=== PATIENT | female | born 1965 | race Caucasian/White ===

== ENCOUNTER 2020-10-15 07:32 | Observation (INO) | payer MEDICARE ==
[~2020-10-15] VITALS: Ht 167.6 cm; Wt 79.4 kg
--- NOTE | 2020-10-15 07:35 | NUR ---
PATIENT TO ROOM VIA WHEELCHAIR FOR BEDSIDE TRIAGE.
[2020-10-15 08:02] LABS: HEMATOCRIT 42.1 % (37.0-47.0); HEMOGLOBIN 14.2 g/dl (12.0-16.0); IMMATURE GRANULOCYTES 0.4 % (0.0-5.0); MEAN CELL VOLUME 93.3 fL CALC (80.0-100.0); MEAN CORPUSCULAR HGB 31.5 pG CALC (26.0-32.0); MEAN CORPUSCULAR HGB CONC 33.7 g/dL CAL (32.0-36.0); NEUT# 4.1 thou/uL (2.00-7.15); RED BLOOD COUNT 4.51 mill/uL (4.20-5.60); RED CELL DISTRI WIDTH 12.5 % (11.5-15.5)
[2020-10-15 08:08] LABS: URINE BILIRUBIN - DIPSTICK NEGATIVE (NEGATIVE); URINE BLOOD DIPSTICK TRACE-INTACT (NEGATIVE); URINE COLOR YELLOW; URINE GLUCOSE - DIPSTICK NEGATIVE (NEGATIVE); URINE KETONE NEGATIVE (NEGATIVE); URINE LEUK ESTERASE NEGATIVE (NEGATIVE); URINE NITRITE - DIPSTICK NEGATIVE (Negative); URINE PH 7.5 (4.5-8.0); URINE PROTEIN - DIPSTICK NEGATIVE (NEG-TRACE); URINE UROBILINOGEN - DIPSTICK 0.2 E.U./dL (0.2)
--- NOTE | 2020-10-15 08:15 | NUR ---
IV, LABS AND EKG COMPLETED AWAITING RESULTS
[2020-10-15] MEDS ORDERED: LISINOPRIL2.5 MG PO (08:19)
[2020-10-15] MEDS ORDERED: NITROSTAT0.4 MG SL (08:20)
[2020-10-15 08:24] LABS: ALBUMIN 4.9 g/dL (3.2-5.0); ALKALINE PHOSPHATASE 91 u/l (38-126); ANION GAP 14 (6-22 (CALC)); BILIRUBIN, TOTAL 0.5 mg/dL (0.0-1.4); BUN 12 mg/dL (7-17); BUN/CREATININE RATIO 16 (12-20 (CALC)); CARBON DIOXIDE 27 mmol/l (22-30); CHLORIDE 107 mmol/l (95-108); CREATININE 0.7 mg/dL (0.5-1.0); GFR > 60 ML/MIN (>=60 (CALC)); GFR FOR AFR.AMER. > 60 ML/MIN (>=60 (CALC)); POTASSIUM 3.8 mmol/l (3.5-5.1); SGOT/AST 25 u/l (14-36); SODIUM 143 mmol/l (137-146)
[2020-10-15 08:36] LABS: MYOGLOBIN 38 ng/mL (0 - 62)
--- NOTE | 2020-10-15 09:55 | NUR ---
PT RETURNED FROM RADIOLOGY AWAITING RESULTS
--- NOTE | 2020-10-15 10:08 | NUR ---
PT ARRIVED FROM RADIOLOGY WITHOUT DISTREWSS
--- NOTE | 2020-10-15 11:00 | NUR ---
PT RESTING WITHOUT DISTRESS
--- NOTE | 2020-10-15 12:47 | NUR ---
Transfer Information Transferred To: [facility] Report Given to: SUE Transported by: [facility] [employer] Other Transported with: X Nurse X Transporter X Patent IV O2 X Prosthetics Lab Technician PT WHEELCHAIRED UP WITHOUT DISTRESS REPORT CALLED
[2020-10-15 13:13] VITALS: BP 182/88
--- NOTE | 2020-10-15 14:00 | NUR ---
PT ARRIVES TO FLOOR FROM ER, ALERT AND ORIENTED X 3. LUNGS CLEAR, RA. ABDOMEN SOFT, NONTENDER, BM TODAY. SKIN INTACT. NO COMPLAINT OF CHEST PAIN SINCE ARRIVAL, BUT WAS MEDICATED FOR NAUSEA.
[2020-10-15 14:50] VITALS: BP 151/91
--- NOTE | 2020-10-15 17:36 | NUR ---
VENIFER INFUSED, PT RESTS IN THE BED IN NO ACUTE DISTRESS. NO COMPLAINTS OF CHEST PAIN OR SHORTNESS OF BREATH.
[2020-10-15 18:49] VITALS: BP 140/77
--- NOTE | 2020-10-15 20:06 | NUR ---
PATIENT RESTING IN BED AT THIS TIME, PATIENT DENIES ANY PAIN, SOB, OR DISTRESS. PATIENT HAS TELE ON, ASSESSMENT COMPLETED, CALL LIGHT WITHIN REACH, BED IN LOWEST POSITION, WILL CONTINUE TO MONITOR.
[2020-10-15 23:30] VITALS: BP 135/72
[2020-10-16 04:00] VITALS: BP 107/66
[2020-10-16 06:01] LABS: HEMATOCRIT 39.2 % (37.0-47.0); HEMOGLOBIN 12.8 g/dl (12.0-16.0); IMMATURE GRANULOCYTES 0.3 % (0.0-5.0); MEAN CELL VOLUME 96.3 fL CALC (80.0-100.0); MEAN CORPUSCULAR HGB 31.4 pG CALC (26.0-32.0); MEAN CORPUSCULAR HGB CONC 32.7 g/dL CAL (32.0-36.0); NEUT# 2.8 thou/uL (2.00-7.15); RED BLOOD COUNT 4.07 mill/uL (4.20-5.60); RED CELL DISTRI WIDTH 12.7 % (11.5-15.5)
[2020-10-16 06:22] LABS: ALKALINE PHOSPHATASE 68 u/l (38-126); ANION GAP 10 (6-22 (CALC)); BILIRUBIN, TOTAL 0.3 mg/dL (0.0-1.4); BUN 14 mg/dL (7-17); BUN/CREATININE RATIO 19 (12-20 (CALC)); CALCULATED LDLCHOLESTEROL 152 mg/dL (62-129 (CALC)); CARBON DIOXIDE 25 mmol/l (22-30); CHLORIDE 111 mmol/l (95-108); CHOLESTEROL HDL RATIO 8.1 (<4.4 (CALC)); CREATININE 0.7 mg/dL (0.5-1.0); GFR > 60 ML/MIN (>=60 (CALC)); GFR FOR AFR.AMER. > 60 ML/MIN (>=60 (CALC)); HDL CHOLESTEROL 30 mg/dL (>=40); MAGNESIUM 2.1 mg/dL (1.6-2.3); POTASSIUM 4.2 mmol/l (3.5-5.1); SGOT/AST 19 u/l (14-36); SODIUM 142 mmol/l (137-146); TOTAL CHOLESTEROL 240 mg/dl (0-199); TOTAL TRIGLYCERIDES 289 mg/dl (30-149); VLDL CHOLESTROL 58 mg/dl (2-49 (CALC))
[2020-10-16 06:26] LABS: ALBUMIN 3.7 g/dL (3.2-5.0); TOTAL PROTEIN 6.2 g/dL (6.3-8.2)
[2020-10-16 07:50] VITALS: BP 125/72
--- NOTE | 2020-10-16 07:50 | NUR ---
ASSESSMENT IS COMPLETED: IV SITE IS FREE FROM REDNESS OR EDEMA. HR IS REG,PULSES ARE STRONG X4, ABD IS SOFT WITH ACTIV EBS. BREATH SOUNDS ARE CLEAR BILATERALLY, NO C/O SOB OR CP. TELE MONITOR IN PLACE.
[2020-10-16 09:14] VITALS: BP 125/72
[2020-10-16] MEDS ORDERED: AMOX/K CLAV875 M1 PO (09:15)
[2020-10-16] MEDS ORDERED: FLEXERIL5 M1 PO (09:18)
--- NOTE | 2020-10-16 10:11 | NUR ---
PT WANTED TO WALK OFF THE UNIT. DUE TO BEING "COOPED UP AND FEELING ANSY"DISCHARGE INSTRUCTIONS GIVEN AND IV SITE DISCONITUED CATHETER INTACT. PT ALREADY TOOK TELE MONITOR OFF. ER INFORMED OF THE DISCHARGE.
--- NOTE | 2020-10-16 10:30 | NUR ---
Discharge instructions given. Patient verbalizes understanding of same. Discharged in stable condition via Ambulatory to HOME with family. All belongings sent with pt.
== END 2020-10-16 10:10 | disposition home or self-care (01) ==
LOC: ED 07:32 → ED-I 10:49 → ED 10:58 → MS2 10:59
PROVIDERS: Emergency Medicine; Nurse Practitioner; ADMIT Internal Medicine; ATTEND Internal Medicine
DX: R07.9 Chest pain, unspecified (principal); J18.9 Pneumonia, unspecified organism; M54.9 Dorsalgia, unspecified; I10 Essential (primary) hypertension; F17.200 Nicotine dependence, unspecified, uncomplicated; Z86.79 Personal history of other diseases of the circulatory system; Z20.822 Contact with and (suspected) exposure to COVID-19
CPT/HCPCS: J1650; Q9967; S0164

== ENCOUNTER 2021-03-14 07:26 | Emergency (ER) | payer MEDICARE ==
[~2021-03-14] VITALS: Ht 167.6 cm; Wt 82.0 kg
[~2021-03-14 07:26] MED LIST: AMOX/K CLAV875 M1 PO; FLEXERIL5 M1 PO; LISINOPRIL2.5 MG PO; NITROSTAT0.4 MG SL
[2021-03-14 08:01] LABS: URINE BILIRUBIN - DIPSTICK NEGATIVE (NEGATIVE); URINE BLOOD DIPSTICK SMALL (NEGATIVE); URINE COLOR YELLOW; URINE GLUCOSE - DIPSTICK NEGATIVE (NEGATIVE); URINE KETONE NEGATIVE (NEGATIVE); URINE LEUK ESTERASE NEGATIVE (NEGATIVE); URINE PH 5.5 (4.5-8.0); URINE PROTEIN - DIPSTICK NEGATIVE (NEG-TRACE); URINE SPECIFIC GRAVITY >=1.030; URINE UROBILINOGEN - DIPSTICK 0.2 E.U./dL (0.2)
[2021-03-14 08:01] LABS: IMMATURE GRANULOCYTES 0.3 % (0.0-5.0); MEAN CELL VOLUME 92.5 fL CALC (80.0-100.0); MEAN CORPUSCULAR HGB 30.7 pG CALC (26.0-32.0); MEAN CORPUSCULAR HGB CONC 33.2 g/dL CAL (32.0-36.0); NEUT# 3.58 thou/uL (2.00-7.15); RED BLOOD COUNT 4.95 mill/uL (4.20-5.60); RED CELL DISTRI WIDTH 12.7 % (11.5-15.5)
[2021-03-14 08:13] LABS: HEMATOCRIT 45.8 % (37.0-47.0); HEMOGLOBIN 15.2 g/dl (12.0-16.0)
[2021-03-14 08:15] LABS: URINE NITRITE - DIPSTICK NEGATIVE (Negative)
[2021-03-14 08:18] LABS: URINE SQUAMOUS EPITHELIAL CELL MODERATE EPI/hpf (0-FEW)
[2021-03-14 08:25] LABS: ALKALINE PHOSPHATASE 70 u/l (38-126); ANION GAP 14 (6-22 (CALC)); BUN 14 mg/dL (7-17); BUN/CREATININE RATIO 18 (12-20 (CALC)); CARBON DIOXIDE 25 mmol/l (22-30); CHLORIDE 105 mmol/l (95-108); CREATININE 0.7 mg/dL (0.5-1.0); GFR > 60 ML/MIN (>=60 (CALC)); GFR FOR AFR.AMER. > 60 ML/MIN (>=60 (CALC)); POTASSIUM 3.9 mmol/l (3.5-5.1); SGOT/AST 30 u/l (14-36); SODIUM 140 mmol/l (137-146)
[2021-03-14 08:28] LABS: ALBUMIN 4.9 g/dL (3.2-5.0); BILIRUBIN, TOTAL 0.5 mg/dL (0.0-1.4); TOTAL PROTEIN 8.2 g/dL (6.3-8.2)
[2021-03-14] MEDS ORDERED: FLEXERIL5 M1 PO (12:05)
[2021-03-14] MEDS ORDERED: TORADOL PO (12:05)
[2021-03-14] MEDS ORDERED: PERCOCET 5/325M1 TAB PO (12:05)
[2021-03-14 12:46] VITALS: BP 140/69
== END 2021-03-14 12:51 | disposition home or self-care (01) ==
LOC: ED 07:26
PROVIDERS: Emergency Medicine
DX: M51.26 Other intervertebral disc displacement, lumbar region (principal); I10 Essential (primary) hypertension; F17.200 Nicotine dependence, unspecified, uncomplicated

== ENCOUNTER 2021-04-18 19:24 | Emergency (ER) | payer MEDICARE ==
[~2021-04-18] VITALS: Ht 167.6 cm; Wt 79.0 kg
[~2021-04-18 19:24] MED LIST changes: +PERCOCET 5/325M1 TAB PO; +TORADOL PO
[2021-04-18 20:54] LABS: HEMOGLOBIN 14.9 g/dl (12.0-16.0); IMMATURE GRANULOCYTES 0.4 % (0.0-5.0); MEAN CELL VOLUME 90.7 fL CALC (80.0-100.0); MEAN CORPUSCULAR HGB 30.7 pG CALC (26.0-32.0); MEAN CORPUSCULAR HGB CONC 33.9 g/dL CAL (32.0-36.0); NEUT# 5.33 thou/uL (2.00-7.15); RED BLOOD COUNT 4.85 mill/uL (4.20-5.60); RED CELL DISTRI WIDTH 12.5 % (11.5-15.5)
[2021-04-18 20:58] LABS: ALBUMIN 4.5 g/dL (3.2-5.0); ALKALINE PHOSPHATASE 74 u/l (38-126); ANION GAP 14 (6-22 (CALC)); BILIRUBIN, TOTAL 0.3 mg/dL (0.0-1.4); BUN 22 mg/dL (7-17); BUN/CREATININE RATIO 29 (12-20 (CALC)); CARBON DIOXIDE 25 mmol/l (22-30); CHLORIDE 102 mmol/l (95-108); CREATININE 0.8 mg/dL (0.5-1.0); GFR > 60 ML/MIN (>=60 (CALC)); GFR FOR AFR.AMER. > 60 ML/MIN (>=60 (CALC)); POTASSIUM 4.2 mmol/l (3.5-5.1); SGOT/AST 36 u/l (14-36); SODIUM 137 mmol/l (137-146); TOTAL PROTEIN 7.9 g/dL (6.3-8.2)
[2021-04-18 21:41] LABS: URINE BILIRUBIN - DIPSTICK NEGATIVE (NEGATIVE); URINE BLOOD DIPSTICK SMALL (NEGATIVE); URINE COLOR YELLOW; URINE GLUCOSE - DIPSTICK NEGATIVE (NEGATIVE); URINE KETONE NEGATIVE (NEGATIVE); URINE LEUK ESTERASE NEGATIVE (NEGATIVE); URINE PROTEIN - DIPSTICK NEGATIVE (NEG-TRACE); URINE SPECIFIC GRAVITY >=1.030; URINE UROBILINOGEN - DIPSTICK 0.2 E.U./dL (0.2)
[2021-04-18 21:47] LABS: URINE NITRITE - DIPSTICK NEGATIVE (Negative)
[2021-04-18 21:54] LABS: URINE SQUAMOUS EPITHELIAL CELL FEW EPI/hpf (0-FEW); URINE WBC 0-2 WBC/hpf (0-5)
[2021-04-18 23:30] VITALS: BP 147/83
== END 2021-04-18 23:55 | disposition left against medical advice (07) ==
LOC: ED 19:24
PROVIDERS: Emergency Medicine
DX: R07.9 Chest pain, unspecified (principal); I10 Essential (primary) hypertension; F17.200 Nicotine dependence, unspecified, uncomplicated; T46.5X6A Underdosing of other antihypertensive drugs, initial encounter; Z91.128 Patient's intentional underdosing of medication regimen for other reason; Z86.73 Personal history of transient ischemic attack (TIA), and cerebral infarction without residual deficits; Z91.19 Patient's noncompliance with other medical treatment and regimen

== ENCOUNTER 2021-08-22 15:02 | Emergency (ER) | payer MEDICARE ==
[~2021-08-22] VITALS: Ht 167.6 cm; Wt 80.0 kg
[2021-08-22] MEDS ORDERED: SIMVASTATIN10 MG PO (15:48)
[2021-08-22] MEDS ORDERED: LISINOPRIL2.5 MG PO (15:48)
[2021-08-22 16:20] LABS: HEMOGLOBIN 14.5 g/dl (12.0-16.0); IMMATURE GRANULOCYTES 0.1 % (0.0-5.0); MEAN CELL VOLUME 90.9 fL CALC (80.0-100.0); MEAN CORPUSCULAR HGB 31.4 pG CALC (26.0-32.0); MEAN CORPUSCULAR HGB CONC 34.5 g/dL CAL (32.0-36.0); NEUT# 4.21 thou/uL (2.00-7.15); RED BLOOD COUNT 4.62 mill/uL (4.20-5.60); RED CELL DISTRI WIDTH 12.4 % (11.5-15.5)
[2021-08-22 16:31] LABS: ALBUMIN 4.9 g/dL (3.2-5.0); ALKALINE PHOSPHATASE 111 u/l (38-126); ANION GAP 16 (6-22 (CALC)); BILIRUBIN, TOTAL 0.6 mg/dL (0.0-1.4); BUN 12 mg/dL (7-17); BUN/CREATININE RATIO 17 (12-20 (CALC)); CARBON DIOXIDE 24 mmol/l (22-30); CHLORIDE 107 mmol/l (95-108); CREATININE 0.7 mg/dL (0.5-1.0); GFR > 60 ML/MIN (>=60 (CALC)); GFR FOR AFR.AMER. > 60 ML/MIN (>=60 (CALC)); LIPASE 164 u/l (23-300); MAGNESIUM 1.9 mg/dL (1.6-2.3); POTASSIUM 3.8 mmol/l (3.5-5.1); SGOT/AST 37 u/l (14-36); SODIUM 143 mmol/l (137-146); TOTAL PROTEIN 8.5 g/dL (6.3-8.2)
[2021-08-22 18:16] LABS: URINE BILIRUBIN - DIPSTICK NEGATIVE (NEGATIVE); URINE BLOOD DIPSTICK SMALL (NEGATIVE); URINE COLOR YELLOW; URINE GLUCOSE - DIPSTICK NEGATIVE (NEGATIVE); URINE KETONE NEGATIVE (NEGATIVE); URINE LEUK ESTERASE NEGATIVE (NEGATIVE); URINE NITRITE - DIPSTICK NEGATIVE (Negative); URINE PROTEIN - DIPSTICK NEGATIVE (NEG-TRACE); URINE UROBILINOGEN - DIPSTICK 0.2 E.U./dL (0.2)
[2021-08-22 18:17] LABS: URINE SQUAMOUS EPITHELIAL CELL FEW EPI/hpf (0-FEW); URINE WBC 0-2 WBC/hpf (0-5)
[2021-08-22] MEDS ORDERED: ZOFRAN4 MG/TAB PO (18:23)
[2021-08-22] MEDS ORDERED: PEPCID20 MG PO (18:23)
[2021-08-22 18:44] VITALS: BP 137/77
== END 2021-08-22 18:51 | disposition home or self-care (01) ==
LOC: ED 15:02
PROVIDERS: Physician Assistant Surgical
DX: R10.30 Lower abdominal pain, unspecified (principal); R19.7 Diarrhea, unspecified; R31.9 Hematuria, unspecified; I10 Essential (primary) hypertension; F17.200 Nicotine dependence, unspecified, uncomplicated; Z86.73 Personal history of transient ischemic attack (TIA), and cerebral infarction without residual deficits
CPT/HCPCS: Q9967

== ENCOUNTER 2021-12-31 10:27 | Emergency (ER) | payer MEDICARE ==
[~2021-12-31] VITALS: Ht 167.6 cm; Wt 79.4 kg
[2021-12-31] VITALS (11 sets, daily range): BP systolic 149–182; BP diastolic 77–116
[~2021-12-31 10:27] MED LIST changes: +PEPCID20 MG PO; +SIMVASTATIN10 MG PO; +ZOFRAN4 MG/TAB PO
[2021-12-31] MEDS ORDERED: FLOXIN OTIC0.3 % OT ×2 (12:37→12:40)
[2021-12-31] MEDS ORDERED: LEVAQUIN750 M1 PO ×2 (12:37→12:40)
[2021-12-31] MEDS ORDERED: POLYTRIM OU (12:40)
== END 2021-12-31 13:10 | disposition home or self-care (01) ==
LOC: ED 10:27
DX: H60.93 Unspecified otitis externa, bilateral (principal); H10.9 Unspecified conjunctivitis; J32.9 Chronic sinusitis, unspecified; I10 Essential (primary) hypertension; E78.5 Hyperlipidemia, unspecified; F17.210 Nicotine dependence, cigarettes, uncomplicated; Z86.73 Personal history of transient ischemic attack (TIA), and cerebral infarction without residual deficits

== ENCOUNTER 2022-12-03 08:44 | Emergency (ER) | payer MEDICAID ==
[~2022-12-03] VITALS: Ht 167.6 cm; Wt 77.0 kg
[~2022-12-03 08:44] MED LIST changes: +FLOXIN OTIC0.3 % OT; +LEVAQUIN750 M1 PO; +POLYTRIM OU
[2022-12-03 08:56] VITALS: BP 153/75
[2022-12-03] MEDS ORDERED: ATORVASTATIN CA20 MG PO (09:05)
[2022-12-03] MEDS ORDERED: METOPROL TAR25 MG PO (09:05)
[2022-12-03] MEDS ORDERED: PLAVIX75 MG PO (09:05)
[2022-12-03] MEDS ORDERED: ASPIRIN81 MG PO (09:05)
[2022-12-03] MEDS ORDERED: ELIQUIS2.5 MG (09:06)
[2022-12-03 09:26] LABS: URINE BILIRUBIN - DIPSTICK NEGATIVE (NEGATIVE); URINE BLOOD DIPSTICK SMALL (NEGATIVE); URINE COLOR YELLOW; URINE GLUCOSE - DIPSTICK NEGATIVE (NEGATIVE); URINE KETONE NEGATIVE (NEGATIVE); URINE LEUK ESTERASE NEGATIVE (NEGATIVE); URINE PROTEIN - DIPSTICK NEGATIVE (NEG-TRACE); URINE SPECIFIC GRAVITY 1.015; URINE UROBILINOGEN - DIPSTICK 0.2 E.U./dL (0.2)
[2022-12-03 09:27] LABS: URINE NITRITE - DIPSTICK NEGATIVE (Negative)
[2022-12-03 09:35] LABS: URINE SQUAMOUS EPITHELIAL CELL FEW EPI/hpf (0-FEW)
[2022-12-03 09:44] LABS: BASO% 0.4 % (0-3); EOS% 1.6 % (0-8); HEMATOCRIT 40.5 % (37.0-47.0); HEMOGLOBIN 13.7 g/dl (12.0-16.0); IMMATURE GRANULOCYTES 0.1 % (0.0-5.0); LYMPH% 32.7 % (15-41); MEAN CELL VOLUME 91.6 fL CALC (80.0-100.0); MEAN CORPUSCULAR HGB CONC 33.8 g/dL CAL (32.0-36.0); MONO% 5.8 % (2-13); NEUT# 4.02 thou/uL (2.00-7.15); NEUT% 59.4 % (42-76); RED BLOOD COUNT 4.42 mill/uL (4.20-5.60); RED CELL DISTRI WIDTH 12.6 % (11.5-15.5)
[2022-12-03 09:51] LABS: ALBUMIN 4.6 g/dL (3.2-5.0); ALKALINE PHOSPHATASE 82 u/l (38-126); BUN 14 mg/dL (7-17); BUN/CREATININE RATIO 21 (12-20 (CALC)); CARBON DIOXIDE 24 mmol/l (22-30); CHLORIDE 109 mmol/l (95-108); CREATININE 0.7 mg/dL (0.5-1.0); GFR FOR AFR.AMER. > 60 ML/MIN (>=60 (CALC)); GFR OTHER RACES > 60 ML/MIN (>=60 (CALC)); SGOT/AST 39 u/l (14-36); SODIUM 139 mmol/l (137-146); TOTAL PROTEIN 7.4 g/dL (6.3-8.2)
[2022-12-03 09:54] LABS: ANION GAP 10 (6-22 (CALC)); BILIRUBIN, TOTAL 0.3 mg/dL (0.02-1.3); POTASSIUM 3.9 mmol/l (3.5-5.1)
[2022-12-03 10:02] VITALS: BP 127/73
[2022-12-03] MEDS ORDERED: FLEXERIL5 M1 PO (10:36)
[2022-12-03] MEDS ORDERED: NAPROXEN500 MG PO (10:36)
[2022-12-03] MEDS ORDERED: NITROFURANTN100 M2 PO (10:38)
[2022-12-03 11:00] VITALS: BP 129/87
[2022-12-03 11:11] VITALS: BP 129/87
== END 2022-12-03 11:21 | disposition home or self-care (01) ==
LOC: ED 08:44
PROVIDERS: Family Medicine
DX: M54.50 Low back pain, unspecified (principal); R31.9 Hematuria, unspecified; I10 Essential (primary) hypertension; F17.210 Nicotine dependence, cigarettes, uncomplicated; Z86.73 Personal history of transient ischemic attack (TIA), and cerebral infarction without residual deficits